=== PATIENT | male | born 1990 ===

== ENCOUNTER 2019-07-04 14:41 | Emergency (ER) | payer BC ==
--- NOTE | 2019-07-04 16:09 | UC ---
Throat Pain/Nasal Lito HPI - HPI Summary HPI Summary: 29 year old male present siwth sinus pressure, congestion, chills, tactile fever , fatigue. patient states approximately 2 weeks ago had a typical cold, which resolved, but now has current symptoms. + working. no recent ABX use. - History of Current Complaint Chief Complaint: UCGeneralIllness Stated Complaint: URI Time Seen by Provider: 07/04/19 15:48 Hx Obtained From: Patient Onset/Duration: Sudden Onset, Lasting Days Severity: Moderate Pain Intensity: 0 Pain Scale Used: 0-10 Numeric Cough: Nonproductive Associated Signs & Symptoms: Positive: Sinus Discomfort, Nasal Discharge, Fever - Allergies/Home Medications Allergies/Adverse Reactions: Allergies Allergy/AdvReac Type Severity Reaction Status Date / Time No Known Allergies Allergy Verified 07/04/19 15:02 PMH/Surg Hx/FS Hx/Imm Hx Previously Healthy: Yes - Surgical History Surgical History: None - Family History Known Family History: Positive: Non-Contributory - Social History Occupation: Employed Full-time Alcohol Use: Rare Substance Use Type: None Smoking Status (MU): Former Smoker Review of Systems All Other Systems Reviewed And Are Negative: Yes Constitutional: Positive: Fever, Chills, Fatigue ENT: Positive: Nasal Discharge, Sinus Congestion, Sinus Pain/Tenderness Respiratory: Positive: Cough Cardiovascular: Positive: Negative Psychological: Positive: Anxious Is Patient Immunocompromised?: No Physical Exam Triage Information Reviewed: Yes Appearance: No Pain Distress, Well-Nourished, Ill-Appearing - mild Vital Signs: Initial Vital Signs Temp 99.9 F 07/04/19 14:59 Pulse 76 07/04/19 14:59 Resp 19 07/04/19 14:59 BP 122/75 07/04/19 14:59 Pulse Ox 99 07/04/19 14:59 Vital Signs Reviewed: Yes Eyes: Positive: Conjunctiva Clear ENT: Positive: Pharynx normal, Nasal congestion, Nasal drainage, TMs normal, Sinus tenderness. Negative: Tonsillar swelling, Tonsillar exudate, Uvula midline Neck: Positive: Supple, Nontender, No Lymphadenopathy. Negative: Nuchal Rigidity, Enlarged Nodes @ Respiratory: Positive: Chest non-tender, Lungs clear, Normal breath sounds, No accessory muscle use. Negative: Respiratory distress Cardiovascular: Positive: RRR, No Murmur Psychological Exam: Normal Skin Exam: Normal Throat Pain/Nasal Course/Dx - Course Course Of Treatment: Sinusitis: - Increase fluid intake - ANtibiotics as directed - FOllow up in ER with increased pain, Headache, fever > 102, neck stiffness - over the counter medications such as motrin/ tylenol for pain, body aches, fever, chills. - Return within 2-3 days if no improvement or follow up with primary physician. - Differential Dx/Diagnosis Differential Diagnosis/HQI/PQRI: Pharyngitis, Sinusitis, URI Provider Diagnosis: Sinusitis Discharge ED - Sign-Out/Discharge Documenting (check all that apply): Patient Departure All imaging exams completed and their final reports reviewed: No Studies - Discharge Plan Condition: Good Disposition: HOME Prescriptions: Azithromycin TAB* [Zithromax TAB (Z-AMINAH) 250 mg #6 tabs] 2 tab PO .TODAY, THEN 1 DAILY #1 aminah Patient Education Materials: Sinusitis (ED) Forms: *Work Release Referrals: [facility] [Outside] No Primary Care Phys,[facility] [Primary Care Provider] - Additional Instructions: - Increase fluid intake - ANtibiotics as directed - FOllow up in ER with increased pain, Headache, fever > 102, neck stiffness - over the counter medications such as motrin/ tylenol for pain, body aches, fever, chills. - Return within 2-3 days if no improvement or follow up with primary physician. - Billing Disposition and Condition Condition: GOOD Disposition: Home
== END 2019-07-04 16:04 | disposition home or self-care (01) ==
LOC: UCEAST 14:41
DX: J32.9 Chronic sinusitis, unspecified (principal)
CPT/HCPCS: 99202; G0463